=== PATIENT | male | born 1985 | race Caucasian/White ===

== ENCOUNTER 2025-03-04 10:40 | Emergency (ER) | payer OTHER, SELFPAY ==
--- NOTE | ~2025-03-04 | CT_ITS ---
EXAMINATION: CT ABDOMEN AND PELVIS WITH CONTRAST CLINICAL INFORMATION: Letter rectum COMPARISON: None available. TECHNIQUE: Multidetector volumetric images were obtained from the superior aspect of the liver through the pubic symphysis following administration 85 mL of Omnipaque 350 intravenous contrast. Sagittal and coronal reformatted images were obtained on the technologist's workstation. Oral contrast: No This CT examination was performed using dose optimization techniques as appropriate, variously including the following: *Automated exposure control *Adjustment of mA and/or kV according to patient size (this includes techniques or standardized protocols for targeted exams where dose is matched to indication/reason for exam; i.e. extremities or head) *Use of iterative reconstruction technique DLP: 306 mGY*cm FINDINGS: LUNG BASES: The visualized lung bases are unremarkable. LIVER, GALLBLADDER, AND BILIARY TREE: The liver is normal in size, shape, and attenuation. No focal hepatic lesion or biliary ductal dilatation is present. The gallbladder is mildly distended. There is trace pericholecystic fluid. Extra hepatic bile duct diameter measures 5 mm. PANCREAS: Unremarkable. SPLEEN: Unremarkable. ADRENAL GLANDS: Unremarkable. KIDNEYS AND URETERS: The kidneys are normal in size, shape, and attenuation. Small benign simple renal cyst is present in the medial aspect of the superior pole right kidney.. No hydronephrosis, hydroureter, or calculi seen. No perinephric stranding. BLADDER: Unremarkable. GASTROINTESTINAL TRACT: There is subjective thickening of the mucosa of the rectosigmoid junction and upper portion of the rectum. There is also subjective hyperenhancement of the mucosa distal descending and sigmoid colon. There is also hypervascularity in the adjacent.. The appendix is unremarkable. ABDOMINAL WALL: No significant hernia is appreciated. LYMPH NODES: Normal. VASCULAR: Unremarkable. PELVIC VISCERA: Unremarkable. OSSEOUS STRUCTURES: Unremarkable. CT/CT abdomen pelvis w IV con IMPRESSION: There is subjective hyperenhancement of the mucosa in the sigmoid colon and possible thickening of mucosa at the rectosigmoid junction and proximal rectum. This raises question of infection, inflammatory bowel disease, neoplasm, and less likely ischemia. Trace pericholecystic fluid. Correlate for signs symptoms of cholecystitis. Fleischner guidelines were followed. Electronically signed by: Jaquan Leyva MD 03/04/2025 04:23 PM EDT
[2025-03-04 11:07] VITALS: BP 112/86; PULSE 104; RESP 18; TEMP 37.1; O2SAT 99; BMI 18.8
--- NOTE | 2025-03-04 11:09 | ED_ITS ---
HPI - General Adult General Chief complaint: General Medical Stated complaint: Abnormal labs Time Seen by Provider: 03/04/25 13:04 Source: patient Mode of arrival: ambulatory Limitations: no limitations History of Present Illness ED Provider: DR. Bentley HPI narrative: A 40-year-old male was sent from PCP office for abnormal labs of elevated WBCs 14 and low potassium of 3, patient with chronic abdominal pain x1 year with chronic rectal bleed seen by PCP to be referred to GI next month patient been having abdominal pain for the past year but worsening over the past week associated with bloody diarrhea described as brown stool mixed with bright red blood, + significant weight loss over the last year. Intermittent nausea and vomiting, no fever, chills. Related Data Allergies Allergy/AdvReac Type Severity Reaction Status Date / Time No Known Allergies Allergy Verified 03/04/25 11:09 Review of Systems 2 Review of Systems: All other systems are reviewed and are negative Constitutional: Reports as per HPI and Reports no additional constitutional complaints Eyes: Reports as per HPI and Reports no additional eye complaints Reports system reviewed and no additional complaints, except as documented Cardiovascular: Reports as per HPI and Reports no additional cardiovascular complaints Respiratory: Reports as per HPI and Reports no additional respiratory complaints Gastrointestinal: Reports as per HPI and Reports no additional gastrointestinal complaints Genitourinary: Reports no additional female genitourinary complaints Musculoskeletal: Reports no additional musculoskeletal complaints Skin/Breast: Reports system reviewed and no additional complaints, except as docu Psychiatric: Reports no additional psychiatric complaints Endocrine: Reports no additional endocrine complaints Hematologic/Lymphatic: Reports no additional hematologic/lymphatic complaints Allergic/Immunologic: Reports no additional allergic/immunologic complaints Reports system reviewed and no additional complaints, except as documented and Reports Abnormal speech present [facility] Social History Social History Unable to assess alcohol history related to: Unknown Smoked in Last 30 Days: No Use of substances other than those prescribed or required for medical reasons: No Advance Directives: No Advance Directives Information Provided: Yes Do you have a plan to hurt others: No Plan Physical Exam ED Vital Signs: Vital Signs - 24 hr 03/04/25 11:07 03/04/25 12:40 03/04/25 12:54 Temperature 98.8 F 98.2 F Pulse Rate 104 H 88 84 Respiratory Rate 18 13 18 Blood Pressure 112/86 124/84 124/84 Pulse Oximetry 99 98 98 Oxygen Delivery Method Room Air Room Air Room Air 03/04/25 14:05 Temperature 98.4 F Pulse Rate 91 Respiratory Rate 12 Blood Pressure 120/80 Pulse Oximetry 97 Oxygen Delivery Method Room Air BMI result Body Mass Index 18.8 Vital signs have been reviewed and appear to be correct. Blood pressure elevated. Heart rate normal. Respiratory rate normal. Temperature normal. Oxygen saturation normal. Appearance: Alert. Oriented X3. No acute distress. Head: Normal external exam. Normocephalic. Atraumatic. No White signs noted. No raccoon eyes noted Eyes: PERRLA. EOMI. Conjunctiva and sclera normal. Eyelids normal. ENT: TM's Normal. Pharynx normal. Uvula midline. Moist mucous membranes. No trismus noted. No drooling noted. No muffled voice noted. Neck: Normal inspection. Neck supple. FROM. No adenopathy. Thyroid Normal. No meningeal signs. No neck mass noted. CVS: Normal heart rate and rhythm. Heart sound normal. No murmurs noted. Pulses normal throughout. Respiratory: No respiratory distress. Painless inspiration. Breath sounds normal. No wheezes/rales/rhonchi noted. Chest nontender. No accessory muscle usage noted or decreased air movement noted. Abdomen: Soft and nontender. Bowel sounds normal in all 4 quadrants. No distention noted. No organomegaly noted. No visible injury noted. Rectal exam: Brown stool mixed with bright red blood. Back: No CVA tenderness. Full range of motion noted. Skin: Skin warm and dry. Normal skin color. Normal skin turgor. No rashes/lesions/lacerations noted. Extremities: No lower extremity edema. Extremities exhibit normal range of motion. Extremities nontender. Neuro: Oriented X 3. Cranial nerve exam: II-XII are grossly intact No motor deficit. No sensory deficit. Reflexes normal. Course Course Course Narrative: 03/04/25 1111 JOAO Rodrigues This is a Rapid Medical Examination (RME) performed by Adria Holden PA-C in triage. Full HPI, ROS, assessment and treatment plan per primary provider in the Main ED. Hx: 40 yo M hx chronic GI issues, stomach cramping, diarrhea x1 yr. reports abd pain w/ eating, no pain at present. routine blood work ordered by PCP for GI appointment showed WBC count 14 and low K+, sent to ED for further eval Plan: labs, UA Reevaluation(s) Reevaluation #1: 40-year-old male came in with chronic abdominal pain, and rectal bleed, patient was sent for evaluation of elevated WBCs and low potassium, potassium was replaced in the ED, stable H&H, patient found on the exam to have positive blood in the stool, CT abdomen pelvis is consistent with colitis which may explain the WBCs elevation, I felt that it is for the patient's safety should be admitted to our hospital but patient declined admission and he rather to follow-up with his own PCP and GI next week. Patient was instructed if increase rectal bleeding, increased lightheadedness, or increased abdominal pain to seek immediate medical attention and patient fully understood my instruction. CT is concern of acute cholecystitis patient has no right upper quadrant pain or tenderness, normal LFTs. Time: 17:08 Medications Administered Discontinued Medications Generic Name Dose Route Start Last Admin Trade Name Freq PRN Reason Stop Dose Admin Potassium Chloride 10 meq in 100 mls @ 100 mls/hr 03/04/25 13:17 03/04/25 14:52 Potassium Chloride/H20 IV 03/04/25 14:16 Infused ONCE ONE Infusion Iohexol 85 ml 03/04/25 15:45 03/04/25 15:45 Iohexol 350 Mg/Ml 100 Ml Infus..Btl IV 03/04/25 15:46 85 ml ONCE ONE Administration Potassium Chloride 40 meq 03/04/25 13:17 03/04/25 13:38 Potassium Chloride Packet 20 Meq Packet PO 03/04/25 13:18 40 meq ONCE ONE Administration Medical Decision Making Differential Diagnosis Differential Diagnoses: The differential diagnosis associated with the presentation includes (External hemorrhoids, internal hemorrhoids, diverticular disease, colitis, hemodynamic instability, severe anemia, electrolyte derangement.) Admission/Observation Consideration of admission/observation: Escalation of care including admission/observation considered Lab Data MDM Lab Attestation statement: I reviewed the patient's lab results. 03/04/25 11:25 03/04/25 11:25 Labs: Lab Results 03/04/25 03/04/25 Range/Units 11:25 13:18 WBC 14.1 H (4.8-10.8) X10*3/uL RBC 5.17 (4.60-5.80) X10*6/uL Hgb 12.1 L (14.0-18.0) g/dl Hct 38.5 L (42.0-52.0) % MCV 74.5 L (80.0-98.0) fL MCH 23.4 L (27.0-33.0) pg MCHC 31.4 (31.0-36.0) g/dl RDW 20.4 H (11.0-16.0) % Plt Count 476 H (160-400) X10*3/uL MPV 8.3 L (9.4-12.4) fL Immature Gran % (Auto) 0.4 (0.0-0.4) % Neut % (Auto) 74.3 H (45-73) % Lymph % (Auto) 15.5 L (20-40) % [place] % (Auto) 8.1 (2-11) % Eos % (Auto) 1.3 (0-4) % Baso % (Auto) 0.4 (0-2) % Lymph # (Auto) 2.2 (1.2-4.9) X10*3/uL [place] # (Auto) 1.1 (0.1-1.2) X10*3/uL Eos # (Auto) 0.2 (0.0-0.4) X10*3/uL Baso # (Auto) 0.1 (0.0-0.2) X10*3/uL Abs Immat Gran (auto) 0.05 H (0.00-0.03) X10*3/uL Absolute Neuts (auto) 10.5 H (2.0-8.3) x10*3/uL Absolute Nucleated RBC 0.000 (0.0-0.012) X10*3/uL Nucleated RBC % (auto) 0.0 (0.0-0.2) /100WBC Sodium 138 (135-145) mmol/L Potassium 3.0 L (3.3-5.1) mmol/L Chloride 101 (96-108) mmol/L Carbon Dioxide 31 H (22-29) mmol/L Anion Gap 9 L (12-20) BUN 9 (9-16) mg/dL Creatinine 0.60 (0.5-1.4) mg/dL Estim Creat Clear Calc 122.4 Estimated GFR > 60 Random Glucose 110 (60-115) mg/dL Calcium 8.8 (8.4-10.2) mg/dL Magnesium 2.0 (1.6-2.6) mg/dL Total Bilirubin 0.2 (0.0-1.0) mg/dL AST 11 (5-37) U/L ALT 8 (0-40) U/L Alkaline Phosphatase 93 (39-117) U/L Total Protein 6.2 L (6.5-8.0) g/dL Albumin 3.7 (3.5-5.0) g/dL Lipase 7 L (8-78) U/L Stool Occult Blood POSITIVE (NEGATIVE) Influenza Type A (PCR) NEGATIVE (Negative) Influenza Type B (PCR) NEGATIVE (Negative) RSV RNA Qual (PCR) NEGATIVE (Negative) SARS-CoV-2 RNA (RT-PCR) NEGATIVE (Negative) Independent Interpretation I performed an independent interpretation of an: CT Scan (Abdomen pelvis:There is subjective hyperenhancement of the mucosa in the sigmoid colon and possible thickening of mucosa at the rectosigmoid junction and proximal rectum. This raises question of infection, inflammatory bowel disease, neoplasm, and less likely ischemia. Trace pericholecystic flu) Radiology Impression Discussion of test interpretation with radiology: I have reviewed the radiologist's reading. Discharge Plan Discharge Clinical Impression: Bright red rectal bleeding, Colitis, Acute hypokalemia Patient Disposition: Home, Self-Care Instructions: Rectal Bleeding (ED) Referrals: Stanley Mckee III, MD [Primary Care Provider, Medical] Print Language: Croatian
[2025-03-04 11:32] LABS: MANUAL DIFF FLAG NO
[2025-03-04 11:37] LABS: Basophils Absolute Auto 0.1 X10*3/uL (0.0-0.2); Basophils Percent Auto 0.4 % (0-2); Eosinophils Absolute Auto 0.2 X10*3/uL (0.0-0.4); Eosinophils Percent Auto 1.3 % (0-4); Hematocrit 38.5 % (42.0-52.0); Hemoglobin 12.1 g/dl (14.0-18.0); Imm Gran Abs Auto 0.05 X10*3/uL (0.00-0.03); Imm Gran Pct Auto 0.4 % (0.0-0.4); Lymphocytes Absolute Auto 2.2 X10*3/uL (1.2-4.9); Lymphocytes Percent Auto 15.5 % (20-40); Mean Corpuscular HGB Conc 31.4 g/dl (31.0-36.0); Mean Corpuscular Hemoglobin 23.4 pg (27.0-33.0); Mean Corpuscular Volume 74.5 fL (80.0-98.0); Mean Platelet Volume 8.3 fL (9.4-12.4); Monocytes Absolute Auto 1.1 X10*3/uL (0.1-1.2); Monocytes Percent Auto 8.1 % (2-11); Neutrophils Absolute Auto 10.5 x10*3/uL (2.0-8.3); Neutrophils Percent Auto 74.3 % (45-73); Platelet Count 476 X10*3/uL (160-400); Red Blood Count 5.17 X10*6/uL (4.60-5.80); Red Cell Distribution Width 20.4 % (11.0-16.0); White Blood Count 14.1 X10*3/uL (4.8-10.8)
[2025-03-04 11:47] LABS: Alanine Aminotransferase 8 U/L (0-40); Albumin Level 3.7 g/dL (3.5-5.0); Alkaline Phosphatase 93 U/L (39-117); Anion Gap 9 (12-20); Aspartate Amino Transferase 11 U/L (5-37); Bilirubin Total 0.2 mg/dL (0.0-1.0); Blood Urea Nitrogen 9 mg/dL (9-16); Calcium 8.8 mg/dL (8.4-10.2); Carbon Dioxide 31 mmol/L (22-29); Chloride 101 mmol/L (96-108); Creatinine Clr Calc Pharmacy 122.4; Estimated Glomerular Filt Rate > 60; Glucose Random 110 mg/dL (60-115); Lipase 7 U/L (8-78); Sodium 138 mmol/L (135-145); Total Protein 6.2 g/dL (6.5-8.0)
[2025-03-04 12:22] LABS: Influenza A PCR NEGATIVE (Negative); Influenza B PCR NEGATIVE (Negative); Resp Syncy Virus RNA Qual PCR NEGATIVE (Negative); SARS COV2 PCR INHOUSE NEGATIVE (Negative)
[2025-03-04 12:40] VITALS: BP 124/84; PULSE 88; RESP 13; TEMP 36.8; O2SAT 98
[2025-03-04 12:54] VITALS: BP 124/84; PULSE 84; RESP 18; O2SAT 98
[2025-03-04 13:27] LABS: OBS Int Ctl Valid YES; OBS1 POSITIVE (NEGATIVE)
[2025-03-04] MEDS: Potassium Chloride Packet 20 MEQ PACKET 40 MEQ PO (13:38)
[2025-03-04] MEDS: Potassium Chloride/H20 10 MEQ/100 ML PIGGYBACK 100 MEQ IV (13:39)
[2025-03-04 14:05] VITALS: BP 120/80; PULSE 91; RESP 12; TEMP 36.9; O2SAT 97
--- OUTSIDE RECORDS SUMMARY | 2025-03-04 14:25 | XMS_ITS | Encounter Summary ---
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 Stanley Mckee MD Primary Care Provider [phone] Reason for Visit * Reason Onset Date Comments Abdominal Pain 03/01/2025 Diarrhea 03/01/2025 Vomiting 03/01/2025 Rectal Bleeding 03/01/2025 Encounter Details Date Type Department Care Team (Late st Contact Info) Description 03/01/2025 Nurse Triage Adult Medicine [address] [id number] Stanley Mckee MD [address] [place] [id number] Abdominal Pain; Diarrhea; Vomiting; Rectal Bleeding Social History Tobacco Use Types Packs/Day Years Used Date Smoking Tobacco: Never Smokeless Tobacco: Never Alcohol Use Standard Drinks/Week Comments Not Asked 0 (1 standard drink = 0.6 oz pur e alcohol) Sex and Gender Information Value Date Recorded Sex Assigned at Not on file Legal Sex Male 9:56 PM EST Gender Identity Not on file Sexual Orientation Not on file documented as of this encounter Progress Notes * Morena Mckenzie RN - 03/02/2025 4:25 PM EDT Reason for Disposition [1] MODERATE rectal bleeding (e.g., small blood clots, passing blood without stool, or toilet waterturns red) AND [2] more than once a day Answer Assessment - Initial Assessment Questions 1. APPEARANCE of BLOOD: What color is it? Is it passed separately, on the surface of the stool, or mixed in with the stool? Bright red dripping in toilet but has subsided over last 2 days but still in fecal 2. AMOUNT: How much blood was passed? Dripping in toilet when having bm only 3. FREQUENCY: How many times has blood been passed with the stools? 6 /day after eating diarrhea with mucus 4. ONSET: When was the blood first seen in the stools? (Days or weeks) Started on and off 3 weeks really started 3 weeks ago 5. DIARRHEA: Is there also some diarrhea? If Yes, ask: How many diarrhea stools in the past 24 hours? 6. CONSTIPATION: Do you have constipation? If Yes, ask: How bad is it? none 7. RECURRENT SYMPTOMS: Have you had blood in your stools before? If Yes, ask: When was the last time? and What happened that time? Recurrent symptoms from 1 year ago 8. BLOOD THINNERS: Do you take any blood thinners? (e.g., Coumadin/warfarin, Pradaxa/dabigatran, aspirin) No blood thinner 9. OTHER SYMPTOMS: Do you have any other symptoms? (e.g., abdomen pain, vomiting, dizziness, fever) Abd. Pain upper right , dizziness, lightheaded , no cp , no sob 10. : Is there any chance you are ? When was your last menstrual period? N/a Protocols used: Rectal Ftqmptfj-H-WP Advised pt. To be evaluated in the ER for freq. Diarrhea with mininal rectal bleeding and upper rt.Abd. Pain . He states the bm have slowed down but is feeling exhausted and weak . He states her felt as though he was not being heard and so declined to say his symptoms are lessening in freq. After I mentioned the ER. I reiterated if having upper bad. Pain and continued diarrhea after eating with blood to be evaluated in the ER. * Danielle Engel MA - 03/02/2025 3:43 PM EDT Please triage for appt for a note. Pt has not established care with pcp * Polina Shane - 03/01/2025 1:57 PM EDT Patient is inquiring about the status of someone from [facility] to call. He states he was told the Dr. Mckee would have so sign his leave of absence. * Delia Zuñiga MA - 03/01/2025 1:49 PM EDT New GI telephone note started, see GI telephone note. Tara, Spoke with patient. Nicholas is no longer here. He feels like he has fallen through the cracks, betweenGI and Primary. Would you be willing to place some testing to be done? His last CT was in the ER for a scrotal issue. Apparently, Nicholas had said she would order another CT and some lab work. He would like to have these done if you are willing to place the orders or other orders you feel necessary. He was unable to follow through on this as his insurance changed and we were not accepting it. Now that his insurance has changed again he can f/up with Renee. Then Dr Kelly can review the results athis next office visit. Maybe Dr Kelly will ok him for a colonoscopy for his RB. He is looking fora work note that I told him we cannot give any type of note until he is seen by GI. Advised him to call PCP which is who he wanted to get in with initially. Please advise. Thanks Rosalie * JOAO Mcallister - 03/01/2025 1:19 PM EDT His CAT scan was unrevealing, nothing acute, he will benefit to have a colonoscopy, I guess he has to just keep the appointment with Dr. Kinney, any worsening of symptoms ER, TY * Delia Zuñiga MA - 03/01/2025 1:01 PM EDT Tara Pt does not have an appt with Dr Kelly until mid March. He is a Nicholas pt. Is there anything you recommend for him now as I have no openings. I put him on my wait list but rarely do patient's cancel. Please advise. Thanks Rosalie * Ping Jose - 03/01/2025 9:00 AM EDT Patient call requires triage: Symptoms patient is presenting: Patient has had GI issues, scheduled to see Dr. Kelly in March. Hecontinues to have abdominal pain, diarrhea, vomiting. He has taken Bentyl and this has not helped. Blood in stools. Patient has been missing work and now needs FMLA form completed by PCP. Patient asking to be seen to address the issues, plus the continued symptoms. Please advise. How long has patient had these symptoms?: ongoing, since 3 weeks for daily issues. For ALL patients calling to schedule any appointment (routine, sick visit, follow up, consult, etc.) in the outpatient setting please ask the following questions: Do you have fever of higher than 101, sore throat with difficulty swallowing or severe shortness ofbreath? no If YES to any of these above symptoms, send a message to triage and do not book. Red dot. If no, an audio or video visit should be booked. Have you had close contact with someone with Coronavirus in the last 14 days? no Have you traveled abroad? no Have you traveled recently to another state outside of [place], [place], [place], [place], [place], [place], [place]? no o If yes, did you quarantine for 14 days or have a negative covid test? no If yes to any of the above, patient is not to be scheduled in office until after 14 day quarantine or negative covid test. If pain or injury related was it due to an accident at work or from a motor vehicle accident? If yes, date of accident/Injury: No If yes, gather 3rd constitution party insurance information Third Constitution Party Information: not applicable PCP: Stanley Mckee MD Payor: [facility] / Plan: [employer] SELECT/SELECT PLUS / Product Type: *No Product type* / documented in this encounter Plan of Treatment Upcoming Encounters Date Type Department Care Team (Late st Contact Info) Description 04/06/2025 10:40 AM EDT Office Visit Gastroenterology - [place] [address] [place] [address] Wero Kelly MD [address] [place] [address] documented as of this encounter Visit Diagnoses Not on filedocumented in this encounter Care Teams Farm Tractor Mechanic Relationship Specialty Start Date End Date Stanley Mckee MD [address] [place] [id number] PCP - General Internal Medicine 10/05/24 documented as of this encounter
--- NOTE | 2025-03-04 15:33 | PC.NURSE ---
40 M presents to ED for low potassium and elevated WBC following PCP visit. Pt has had abdominal pain for a year and rectal bleeding, seen by PCP and referred to GI. A+Ox4. RR even and unlabored. Denies any pain at this time. Sts he has been feeling a bit under the weather for a week. Denies CP but states he gets some episodes of palipiations. Calm, cooperative.
[2025-03-04] MEDS: iohexoL 350 MG/ML 100 ML INFUS..BTL 85 ML IV (15:45)
[2025-03-04 17:11] VITALS: BP 113/72; PULSE 88; RESP 14; TEMP 37; O2SAT 99
[2025-03-04 17:55] VITALS: BP 113/72; PULSE 88; RESP 14; TEMP 37; O2SAT 99
[2025-03-04 17:55] LABS: Appearance Urine Clear; Color Urine Yellow; Glucose Urine UA Negative (Negative); Leukocyte Esterase Urine Negative (Negative); Nitrite Urine Negative (Negative); PH 6.5 (5.0-9.0); Specific Gravity - Urine >= 1.030 (1.005-1.025); UMIC TRIGGER UACC YES; Urine Blood Small (1+) (Negative); Urine Ketones 15 mg/dL (Negative); Urine Protein 30 (1+) mg/dL (Neg-Trace)
[2025-03-04 18:03] LABS: Bacteria Urine None Seen (None Seen); Hyaline Casts Urine 0-2 /LPF (0-2); Squamous Epithelial Cell Urine 0-2 /HPF (0-2); WBC Urine 0-5 /HPF (0-5)
== END 2025-03-04 17:55 | disposition home or self-care (01) ==
PROVIDERS: Physician Assistant Medical; Emergency Provider Emergency Medicine; PCP Internal Medicine
DX: K52.9 Noninfective gastroenteritis and colitis, unspecified (principal); R79.89 Other specified abnormal findings of blood chemistry; R10.2 Pelvic and perineal pain; R11.2 Nausea with vomiting, unspecified; K92.1 Melena; E87.6 Hypokalemia; Z03.818 Encounter for observation for suspected exposure to other biological agents ruled out; Z79.899 Other long term (current) drug therapy
CPT/HCPCS: 0241U; 74177; 80053; 81001; 82272; 83690; 83735; 85025; 96365; 99284; J3480; Q9967

== ENCOUNTER → 2025-03-04 13:17 | Outpatient (BNV) | payer OTHER, SELFPAY | PROVIDERS: Emergency Provider Emergency Medicine; PCP Internal Medicine; Visit Provider Radiology Diagnostic Radiology | DX: K62.89 Other specified diseases of anus and rectum (principal) | CPT/HCPCS: 74177 ==